=== PATIENT | female | born 1980 | race Caucasian/White ===

== ENCOUNTER 2017-03-31 08:58 | Emergency (ER) | payer OTHER ==
[2017-03-31] MEDS ORDERED: Ibuprofen TAB* 600 MG PO ONE (09:28)
--- NOTE | 2017-03-31 09:41 | ED ---
Lower Extremity - HPI Summary HPI Summary: 36 female presents to ED with complaints of right ankle pain, swelling and injury after sustaining a mechanical fall from slipping on snow/ice around 8am just [employer]. Patient states she was on her way to her car when she twisted her ankle, tried correcting it and twisted more and then fell on it. Has been unable to bear weight due to pain. Admits to significant swelling. No sign of ecchymosis. Denies numbness/tingling. PMHx includes Crohns and celiacs. No other complaints. Has not taken any medication. Denies knee, hip, back pain and did not hit her head, no LOC. - History of Current Complaint Chief Complaint: EDExtremityLower Stated Complaint: FALL ANKLE INJURY Time Seen by Provider: 03/31/17 09:02 Hx Obtained From: Patient Hx Last Menstrual Period: 12/08/15 Mechanism Of Injury: Twisted Onset of Pain: Immediate, Post Accident Onset/Duration: Hours Severity Initially: Severe Severity Currently: Moderate Pain Intensity: 7 Pain Scale Used: 0-10 Numeric Timing: Constant, Lasting Hours Location: Is Discrete @ - right ankle/foot Character Of Pain: Sharp, Aching Associated Signs And Symptoms: Positive: Swelling Aggravating Factor(s): Standing, Movement, Weight Bearing Alleviating Factor(s): Rest Able to Bear Weight: No - due to pain and injury Feet (Multiple View): 1 - pain 2 - pain 3 - pain - Allergies/Home Medications Allergies/Adverse Reactions: Allergies Allergy/AdvReac Type Severity Reaction Status Date / Time Gluten Meal Allergy GI Upset Verified 03/31/17 08:59 PMH/Surg Hx/FS Hx/Imm Hx Endocrine/Hematology History: Denies: Hx Anticoagulant Therapy, Hx Diabetes Cardiovascular History: Denies: Hx Hypertension Respiratory History: Denies: Hx Asthma GI History: Reports: Hx Crohn's Disease, Other GI Disorders - celiac - Surgical History Surgery Procedure, Year, and Place: CYST REMOVAL - Immunization History Immunizations Up to Date: Yes Infectious Disease History: No Infectious Disease History: Denies: History Other Infectious Disease, Traveled Outside the [place] in Last 30 Days - Family History Known Family History: Positive: Hypertension - Social History Alcohol Use: Occasionally Substance Use Type: Reports: None Smoking Status (MU): Never Smoked Tobacco Review of Systems Constitutional: Negative Cardiovascular: Negative Respiratory: Negative Positive: Arthralgia, Myalgia, Decreased ROM - right ankle/foot Skin: Negative Neurological: Negative All Other Systems Reviewed And Are Negative: Yes Physical Exam Triage Information Reviewed: Yes Vital Signs On Initial Exam: Initial Vitals Temp Pulse Resp BP Pulse Ox 97.1 F 77 16 150/77 100 03/31/17 08:59 03/31/17 08:59 03/31/17 08:59 03/31/17 08:59 03/31/17 08:59 slightly elevated BP noted, however patient is in pain Vital Signs Reviewed: Yes Appearance: Positive: Well-Appearing, No Pain Distress, Well-Nourished Skin: Positive: Warm, Skin Color Reflects Adequate Perfusion, Dry, Other - edema at right ankle. Negative: Cold, Cyanosis @, Pale, Erythema @ Head/Face: Positive: Normal Head/Face Inspection ENT: Positive: Hearing grossly normal, Pharynx normal Neck: Positive: Supple, Nontender Respiratory/Lung Sounds: Positive: Clear to Auscultation, Breath Sounds Present. Negative: Rales, Rhonchi, Wheezes Cardiovascular: Positive: Normal, RRR, Pulses are Symmetrical in both Upper and Lower Extremities - 1+ right and left pedal. Negative: Murmur, Rub Musculoskeletal: Positive: Limited @ - right ankle and foot, Pain @ - right ankle and foot, Edema Right - ankle and foot and lateral and medial malleolous also on top of foot with tenderess on palpation of all Neurological: Positive: Normal, Sensory/Motor Intact, Alert, Oriented to Person Place, Time, NV Bundle Intact Distally, Unable to Assess Gait - due to pain and injury Procedures - Splinting Location: right ankle Hand-Made Type: orthoglass - and plaster Splint: posterior walking - and stirrup Pre-Proc Neuro Vasc Exam: normal Post-Proc Neuro Vasc Exam: normal, unchanged from pre-exam Diagnostics - Vital Signs Vital Signs Temp Pulse Resp BP Pulse Ox 03/31/17 08:59 97.1 F 77 16 150/77 100 - Laboratory Lab Statement: Any lab studies that have been ordered have been reviewed, and results considered in the medical decision making process. - Radiology right ankle Xray Interpretation: Positive (See Comments) - OBLIQUE NONDISPLACED FRACTURE OF THE DISTAL FIBULA Radiology Interpretation Completed By: Radiologist - and myself right foot Xray Interpretation: Positive (See Comments) - OBLIQUE NONDISPLACED FRACTURE OF THE DISTAL FIBULA Radiology Interpretation Completed By: Radiologist - and myself Lower Extremity Course/Dx - Course Course Of Treatment: xray of ankle and foot obtained and showed nondisplaced distal fibula fracture of right leg. posterior and stirrup splint was applied without difficulty, patient tolerated procedure well. CMS intact both before and after applied. given ibuprofen and ice while in ED. no concern for other etiology at this time. continue RICE and Ibuprofen at home. Crutches and do not bear weight. Follow up ortho/pcp. Aware of worsening signs and symptoms to watch out for. - Diagnoses Differential Diagnosis/HQI/PQRI: Positive: Dislocation, Fracture (Closed), Sprain, Strain Provider Diagnoses: Fracture of distal fibula Discharge - Discharge Plan Condition: Stable Disposition: HOME Prescriptions: Ibuprofen TAB* [Motrin TAB* 800 MG] 800 mg PO Q8HR PRN #[id number] tab PRN Reason: Pain Patient Education Materials: Ankle Fracture (ED) Referrals: [facility] [Primary Care Provider] - Justin Jaeger MD [Medical Doctor] - Additional Instructions: Continue Ibuprofen for pain and inflammation. Rest, ice and elevate leg. Do not bear weight, use crutches. Do not remove splint. Do not get splint wet. Follow up with orthopedics, call to make an appointment to have re-evaluated and cast applied. Any new or worsening symptoms, as discussed, or you feel splint is too tight please seek medical attention immediately.
--- NOTE | 2017-03-31 10:08 | RAD ---
HISTORY: Right foot and ankle injury and pain COMPARISONS: None VIEWS: 6, Frontal, lateral, and oblique views of the right foot and right ankle FINDINGS: BONE DENSITY: Normal. BONES: There is an oblique nondisplaced fracture of the distal fibula. The tibiofibular interval is normal. JOINTS: There is no arthropathy. ALIGNMENT: There is no dislocation. SOFT TISSUES: Unremarkable. OTHER FINDINGS: None. IMPRESSION: OBLIQUE NONDISPLACED FRACTURE OF THE DISTAL FIBULA
[2017-03-31 11:46] VITALS: BP 135/90
== END 2017-03-31 11:52 | disposition home or self-care (01) ==
LOC: ED 08:58
DX: S82.831A Other fracture of upper and lower end of right fibula, initial encounter for closed fracture (principal); X50.1XXA Overexertion from prolonged static or awkward postures, initial encounter; Y92.9 Unspecified place or not applicable
CPT/HCPCS: 99282; A9270-GY

== ENCOUNTER 2018-09-17 10:21 | Emergency (ER) | payer OTHER ==
[2018-09-17] MEDS ORDERED: Aspirin 81 mg CHEW TAB* 81 MG TAB.CHEW PO ONE (10:32)
[2018-09-17 10:59] LABS: Hematocrit 34 % (35-47); Hemoglobin 10.4 g/dL (12.0-16.0); Mean Corpuscular HGB Conc 31 g/dL (31-36); Mean Corpuscular Hemoglobin 21 pg (27-31); Mean Corpuscular Volume 69 fL (80-97); Mean Platelet Volume 7.1 fL (7.4-10.4); Platelet Count 315 10^3/uL (150-450); Red Blood Count 4.87 10^6 /uL (3.70-4.87); Red Cell Distribution Width 18 % (10.5-15); White Blood Count 6.6 10^3/uL (3.5-10.8)
[2018-09-17 11:01] LABS: INR 1.04 (0.82-1.09)
[2018-09-17 11:10] LABS: ABS Eosinophils 0.1 10^3/ul (0-0.6); ABS Lymphocytes 1.8 10^3/ul (1.0-4.8); ABS Monocytes 0.4 10^3/ul (0-0.8); ABS Neutrophils 4.4 10^3/ul (1.5-7.7); Eosinophil % 1.4 %; Lymphocyte % 27.1 %
[2018-09-17 11:14] LABS: Albumin 3.9 g/dL (3.2-5.2); Albumin/Globulin Ratio 1.2 (1-3); BUN/Creatinine Ratio 16.4 (8-20); Calcium 9.2 mg/dL (8.6-10.3); EGFR Non-African American 97.5 (>60); Globulin 3.3 g/dL (2-4); Potassium 4.1 mmol/L (3.5-5.0); Total Bilirubin 0.7 mg/dL (0.2-1.0); Total Protein 7.2 g/dL (6.4-8.9)
[2018-09-17] MEDS ORDERED: Famotidine TAB* 20 MG PO ONE (12:02)
[2018-09-17] MEDS ORDERED: Metoprolol Tartrate IV* 1 MG/ML 5 ML VIAL IV ONE (12:02)
--- NOTE | 2018-09-17 12:04 | ED ---
HPI Chest Pain - HPI Summary HPI Summary: This patient is a 38 year old F presenting to ED with a chief complaint of CP since 929 this morning. Patient had morning coffee and sat down to do work. She noticed pressure in chest and SOB about 30 minutes after drinking coffee. Patient tried to breathe deeper. Over an hour, she worsened to feel CP radiating to her jaw. Patient has had anxiety attacks before. In the room, patient reports CP and SOB but her heart is not racing. Patient had difficulty sleeping last night. The patient rates the pain 4/10 in severity. Symptoms aggravated by caffeine. Symptoms alleviated by nothing. Patient reports palpitations, left hand tingling and cramps, and skipped heart beats. Patient denies heart burn symptoms, no tingling around mouth, pain or swelling in legs. Patient is not on control and her last period was three weeks ago. She is not . PMHx of no DM, HTN, HLD. PSHx of cyst removal. FHx of HTN and MA. Patient occasionally drinks alcohol, does not use substances or smoke tobacco. - History of Current Complaint Chief Complaint: EDChestPainROMI Time Seen by Provider: 09/17/18 11:54 Hx Obtained From: Patient Hx Last Menstrual Period: 12/08/15 Onset/Duration: Started Hours Ago - 929 this morning, Still Present Timing: Constant Current Severity: Mild Pain Intensity: 4 Pain Scale Used: 0-10 Numeric Chest Pain Radiates: Yes Chest Pain Radiates To:: Jaw Character: Pressure/Squeezing, Skipped Beats Aggravating Factor(s): Caffeine Alleviating Factor(s): Nothing Associated Signs and Symptoms: Positive: Chest Pain, Anxiety, Tingling - Left hand tingling but not around mouth, Shortness of Breath, Palpitations. Negative : Swelling - Negative swelling in legs, Calf Pain/Swelling - Allergy/Home Medications Allergies/Adverse Reactions: Allergies Allergy/AdvReac Type Severity Reaction Status Date / Time gluten Allergy GI Upset Verified 09/17/18 10:36 PMH/Surg Hx/FS Hx/Imm Hx Endocrine/Hematology History: Denies: Hx Anticoagulant Therapy, Hx Diabetes Cardiovascular History: Denies: Hx Hypertension Respiratory History: Denies: Hx Asthma GI History: Reports: Hx Crohn's Disease, Other GI Disorders - celiac - Surgical History Surgery Procedure, Year, and Place: CYST REMOVAL Infectious Disease History: No Infectious Disease History: Denies: History Other Infectious Disease, Traveled Outside the [place] in Last 30 Days - Family History Known Family History: Positive: Hypertension, Other - MA - Social History Alcohol Use: Occasionally Hx Substance Use: No Substance Use Type: Reports: None Hx Tobacco Use: No Smoking Status (MU): Never Smoked Tobacco Review of Systems ENT: Negative - Tingling around mouth Positive: Palpitations, Chest Pain - Radiates to jaw Positive: Shortness Of Breath Musculoskeletal: Negative - Pain or swelling in legs, Other - Left hand tinglign and cramps All Other Systems Reviewed And Are Negative: Yes Physical Exam - Summary Physical Exam Summary: Appearance: well appearing, no pain distress Skin: facial acne Head/face:normal Eyes:EOMI, IRMA ENT: mucous membranes moist Neck: supple, non-tender Respiratory: CTA, breath sounds present Cardiovascular:RRR, pulses symmetrical Abdomen: non-tender, soft Bowel Sounds:present Musculoskeletal:normal, strength/ROM intact Neuro:normal, sensory motor intact, A&Ox3 Triage Information Reviewed: Yes Vital Signs On Initial Exam: Initial Vitals Temp Pulse Resp BP Pulse Ox 98.2 F 85 22 139/85 99 09/17/18 10:24 09/17/18 10:24 09/17/18 10:24 09/17/18 10:24 09/17/18 10:24 Vital Signs Reviewed: Yes Diagnostics - Vital Signs Vital Signs Temp Pulse Resp BP Pulse Ox 09/17/18 10:24 98.2 F 85 22 139/85 99 - Laboratory Lab Results: Lab Results 09/17/18 09/17/18 09/17/18 Range/Units 10:31 10:31 10:31 WBC 6.6 (3.5-10.8) 10^3/uL RBC 4.87 (3.70-4.87) 10^6 /uL Hgb 10.4 L (12.0-16.0) g/dL Hct 34 L (35-47) % MCV 69 L (80-97) fL MCH 21 L (27-31) pg MCHC 31 (31-36) g/dL RDW 18 H (10.5-15) % Plt Count 315 (150-450) 10^3/uL MPV 7.1 L (7.4-10.4) fL Neut % (Auto) 65.7 % Lymph % (Auto) 27.1 % Stewart % (Auto) 5.4 % Eos % (Auto) 1.4 % Baso % (Auto) 0.4 % Absolute Neuts (auto) 4.4 (1.5-7.7) 10^3/ul Absolute Lymphs (auto) 1.8 (1.0-4.8) 10^3/ul Absolute Monos (auto) 0.4 (0-0.8) 10^3/ul Absolute Eos (auto) 0.1 (0-0.6) 10^3/ul Absolute Basos (auto) 0.0 (0-0.2) 10^3/ul Absolute Nucleated RBC 0.0 10^3/ul Nucleated RBC % 0.0 Hem Pathologist Commnt Pending INR (Anticoag Therapy) 1.04 (0.82-1.09) Sodium 135 (135-145) mmol/L Potassium 4.1 (3.5-5.0) mmol/L Chloride 107 (101-111) mmol/L Carbon Dioxide 23 (22-32) mmol/L Anion Gap 5 (2-11) mmol/L BUN 11 (6-24) mg/dL Creatinine 0.67 (0.51-0.95) mg/dL Est GFR ( Amer) 118.0 (>60) Est GFR (Non-Af Amer) 97.5 (>60) BUN/Creatinine Ratio 16.4 (8-20) Glucose 115 H (70-100) mg/dL Calcium 9.2 (8.6-10.3) mg/dL Total Bilirubin 0.70 (0.2-1.0) mg/dL AST 17 (13-39) U/L ALT 19 (7-52) U/L Alkaline Phosphatase 44 (34-104) U/L Troponin I 0.00 (<0.04) ng/mL Total Protein 7.2 (6.4-8.9) g/dL Albumin 3.9 (3.2-5.2) g/dL Globulin 3.3 (2-4) g/dL Albumin/Globulin Ratio 1.2 (1-3) Result Diagrams: 09/17/18 10:31 09/17/18 10:31 Lab Statement: Any lab studies that have been ordered have been reviewed, and results considered in the medical decision making process. - Radiology CXR Radiology Interpretation Completed By: Radiologist Summary of Radiographic Findings: No active cardiopulmonary disease. Dr. Martinez has reviewed this radiology report. - EKG 1021 Cardiac Rate: NL - 80 BPM EKG Rhythm: Sinus Rhythm ST Segment: Normal Summary of EKG Findings: Normal EKG. NSR: 80 BPM. Normal [place]. Normal Interval. Normal ST Chest Pain Course/Dx - Course Course Of Treatment: Patient with bilateral arm tingling, abrupt onset chest pain with quick resolution. Stated palpitations, lightheadedness that all went away quickly. Troponin 2, EKG is negative. - Chest Pain Differential Diagnosis/HQI/PQRI: Acute MA, ACS, Angina, CHF, Chest Wall, GI Disease, Lower Respiratory Infection, Pulmonary Embolism - Diagnoses Provider Diagnoses: Atypical chest pain, Anxiety Discharge - Sign-Out/Discharge Documenting (check all that apply): Patient Departure - Discharge Patient Received Moderate/Deep Sedation with Procedure: No - Discharge Plan Condition: Improved Disposition: HOME Patient Education Materials: Chest Pain (ED), Anxiety (ED) Referrals: [facility] - [facility] [Primary Care Provider] - Additional Instructions: Avoid alcohol, caffeine and get plenty of sleep. Stay well-hydrated. Return with ongoing or new chest pain, difficulty breathing, worse, new symptoms or other concerns. Call today to schedule prompt follow-up with your doctor. You may need additional outpatient testing such as stress test. - Billing Disposition and Condition Condition: IMPROVED Disposition: Home - Attestation Statements Document Initiated by Vita: Yes Documenting Scribe: Dereck Humphries Provider For Whom Vita is Documenting (Include Credential): Santo Martinez MD Scribe Attestation: IDereck, scribed for Santo Martinez MD on 09/17/18 at 1840. Scribe Documentation Reviewed: Yes Provider Attestation: The documentation as recorded by the Dereck husain accurately reflects the service I personally performed and the decisions made by me, Santo Martinez MD Status of Scribe Document: Viewed
[2018-09-17 13:01] VITALS: BP 127/79
== END 2018-09-17 13:00 | disposition home or self-care (01) ==
LOC: ED 10:21
DX: R07.89 Other chest pain (principal); F41.9 Anxiety disorder, unspecified; R00.2 Palpitations; R06.02 Shortness of breath
CPT/HCPCS: 36415; 71045; 80053; 84484; 85025; 85060; 85610; 93005; 99283; A9270-GY; J3490